=== PATIENT | male | born 1965 | race Caucasian/White ===

== ENCOUNTER → 2018-10-14 | Outpatient (CLI) | payer OTHER ==
[~2018-10-14] MED LIST: ACULAR 3 ML3 M1 OP; Cimetidine400 MG PO; IBU-8800 MG PO; MELOXICAM15 MG PO; METOPROLOL SR100 MG PO; METOPROLOL SR50 MG PO; MORPHINE SULFA100 M1 PO; MORPHINE SULFA100 MG PO; TOBREX OPHTH S2.5 ML OPH; VERAPAMIL HYDR180 MG PO
== END | disposition home or self-care (01) ==
LOC: US 15:15
DX: S86.012A Strain of left Achilles tendon, initial encounter (principal); M25.572 Pain in left ankle and joints of left foot; X58.XXXA Exposure to other specified factors, initial encounter; Y93.89 Activity, other specified; Y92.89 Other specified places as the place of occurrence of the external cause; Y99.8 Other external cause status

== ENCOUNTER 2022-09-05 07:52 | Emergency (ER) | payer OTHER ==
[~2022-09-05] VITALS: Ht 177.8 cm; Wt 97.5 kg
[2022-09-05 08:46] LABS: BASO % 0.4 % (0.0-1.0); EOS # 0.3 10*3/uL (0.0-0.4); EOS % 3.1 % (1.0-4.0); HEMATOCRIT 42.7 % (42.0-52.0); LYMPH # 1.6 10*3/uL (1.3-4.4); LYMPH % 15.9 % (27.0-41.0); MEAN CELL VOLUME 93.8 fl (80.0-94.0); MEAN CORPUSCULAR HGB 31.2 pg (27.0-31.0); MEAN CORPUSCULAR HGB CONC 33.3 g/dl (33.0-37.0); MEAN PLATELET VOLUME 8.6 fl (9.6-12.3); MONO % 9.3 % (3.0-9.0); NEUT # 7.3 10*3/uL (2.3-7.9); PLATELET COUNT AUTOMATED 280 10*3/uL (130-400); RED BLOOD COUNT 4.55 10*6/uL (4.50-5.90); RED CELL DISTRI WIDTH 12.3 % (0-14.5); WHITE BLOOD COUNT 10.3 10*3/uL (4.8-10.8)
[2022-09-05 09:02] LABS: ALKALINE PHOSPHATASE 55 U/L (46-116); BUN 14 mg/dl (9-23); CHLORIDE 103 mmol/L (98-107); POTASSIUM 4.2 mmol/L (3.4-5.1); SGPT/ALT 22 U/L (10-49); TOTAL PROTEIN 7.3 gm/dL (6.0-8.0)
[2022-09-05] MEDS ORDERED: METOPROLOL SUCC50 M2 PO (10:47)
== END 2022-09-05 11:32 | disposition home or self-care (01) ==
LOC: ED 07:52
PROVIDERS: Student in an Organized Health Care Education/Training Program
DX: I10 Essential (primary) hypertension (principal); R00.0 Tachycardia, unspecified; Z88.8 Allergy status to other drugs, medicaments and biological substances; Z90.89 Acquired absence of other organs; Z98.890 Other specified postprocedural states

== ENCOUNTER 2022-11-30 09:50 | Emergency (ER) | payer OTHER ==
[~2022-11-30] VITALS: Wt 96.6 kg
[~2022-11-30 09:50] MED LIST changes: +METOPROLOL SUCC50 M2 PO
[2022-11-30] MEDS ORDERED: SIMVASTATIN10 MG PO (10:24)
[2022-11-30] MEDS ORDERED: PANTOPRAZOLE SO40 MG PO (10:24)
[2022-11-30] MEDS ORDERED: HYDROCHLOROTH12.5 M2 PO (10:25)
[2022-11-30] MEDS ORDERED: LISINOPRIL30 MG PO (10:25)
[2022-11-30 11:01] LABS: BASO % 0.2 % (0.0-1.0); EOS # 0.1 10*3/uL (0.0-0.4); EOS % 0.4 % (1.0-4.0); HEMATOCRIT 41.2 % (42.0-52.0); LYMPH # 0.7 10*3/uL (1.3-4.4); LYMPH % 3.8 % (27.0-41.0); MEAN CELL VOLUME 93.6 fl (80.0-94.0); MEAN CORPUSCULAR HGB 31.8 pg (27.0-31.0); MEAN PLATELET VOLUME 9.1 fl (9.6-12.3); MONO # 0.9 10*3/uL (0.1-1.0); MONO % 4.8 % (3.0-9.0); NEUT # 16.1 10*3/uL (2.3-7.9); NEUT % 89.7 % (47.0-73.0); PLATELET COUNT AUTOMATED 248 10*3/uL (130-400); RED CELL DISTRI WIDTH 12.7 % (0-14.5); WHITE BLOOD COUNT 17.9 10*3/uL (4.8-10.8)
[2022-11-30 11:11] LABS: ACT PARTIAL THROMBO TIME 31.6 SECONDS (20.0-32.1); INTERNATIONAL NORM RATIO 1.1 (2.0-3.5)
[2022-11-30 11:18] LABS: ALKALINE PHOSPHATASE 56 U/L (46-116); BUN 17 mg/dl (9-23); CHLORIDE 99 mmol/L (98-107); LIPASE 28 U/L (12-53); POTASSIUM 3.6 mmol/L (3.4-5.1); SGPT/ALT 27 U/L (10-49); TOTAL PROTEIN 7.5 gm/dL (6.0-8.0)
== END 2022-11-30 13:55 | disposition short-term general hospital (02) ==
LOC: ED 09:50
PROVIDERS: Emergency Medicine
DX: M79.10 Myalgia, unspecified site (principal); A41.9 Sepsis, unspecified organism; N49.2 Inflammatory disorders of scrotum; Z88.8 Allergy status to other drugs, medicaments and biological substances; Z98.890 Other specified postprocedural states

== ENCOUNTER → 2023-07-16 | Outpatient (CLI) | payer OTHER ==
[~2023-07-16] MED LIST changes: +HYDROCHLOROTH12.5 M2 PO; +LISINOPRIL30 MG PO; +PANTOPRAZOLE SO40 MG PO; +SIMVASTATIN10 MG PO
== END | disposition home or self-care (01) ==
LOC: US 13:11
PROVIDERS: ATTEND Urology
DX: N28.1 Cyst of kidney, acquired (principal); N40.0 Benign prostatic hyperplasia without lower urinary tract symptoms

== ENCOUNTER 2024-12-27 12:23 | Emergency (ER) | payer OTHER ==
[~2024-12-27] VITALS: Ht 177.8 cm; Wt 104.3 kg
[2024-12-27 13:08] LABS: BASO # 0.1 10*3/uL (0.0-0.1); BASO % 0.4 % (0.0-1.0); EOS # 0.1 10*3/uL (0.0-0.4); HEMATOCRIT 40.9 % (42.0-52.0); MEAN CELL VOLUME 89.5 fl (80.0-94.0); MEAN CORPUSCULAR HGB 30.6 pg (27.0-31.0); MEAN CORPUSCULAR HGB CONC 34.2 g/dl (33.0-37.0); MEAN PLATELET VOLUME 8.6 fl (9.6-12.3); MONO # 0.8 10*3/uL (0.1-1.0); MONO % 5.3 % (3.0-9.0); NEUT # 11.2 10*3/uL (2.3-7.9); NEUT % 77.6 % (47.0-73.0); PLATELET COUNT AUTOMATED 295 10*3/uL (130-400); RED BLOOD COUNT 4.57 10*6/uL (4.50-5.90); RED CELL DISTRI WIDTH 12.5 % (0-14.5); WHITE BLOOD COUNT 14.4 10*3/uL (4.8-10.8)
[2024-12-27] MEDS ORDERED: LOSARTAN POTAS100 M1 PO (13:16)
[2024-12-27] MEDS ORDERED: ROSUVASTATIN CA10 MG PO (13:16)
[2024-12-27 13:23] LABS: ACT PARTIAL THROMBO TIME 26.7 SECONDS (20.0-32.1)
[2024-12-27 13:31] LABS: ALKALINE PHOSPHATASE 60 U/L (46-116); BUN 20 mg/dl (9-23); CHLORIDE 103 mmol/L (98-107); POTASSIUM 4.3 mmol/L (3.4-5.1); SGPT/ALT 37 U/L (5-49); TOTAL PROTEIN 7.1 gm/dL (6.0-8.0)
[2024-12-27] MEDS ORDERED: HYDROCODONE-AC1 EAC1 PO (13:38)
[2024-12-27] MEDS ORDERED: Enoxaparin Sodium 100 MG/ML SYR SC ONE (13:40)
[2024-12-27] MEDS ORDERED: Acetaminophen/Hydrocodone 5 MG/325 MG TABLET PO ONE (13:45)
[2024-12-27] MEDS ORDERED: Enoxaparin Sodium 100 MG/ML SYR SC SCH (13:55)
== END 2024-12-27 14:10 | disposition home or self-care (01) ==
LOC: ED 12:23
PROVIDERS: Nurse Practitioner Family
DX: S86.812A Strain of other muscle(s) and tendon(s) at lower leg level, left leg, initial encounter (principal); S80.12XA Contusion of left lower leg, initial encounter; I10 Essential (primary) hypertension; M19.90 Unspecified osteoarthritis, unspecified site; E78.5 Hyperlipidemia, unspecified; Z88.8 Allergy status to other drugs, medicaments and biological substances; Z98.890 Other specified postprocedural states; X58.XXXA Exposure to other specified factors, initial encounter; Y93.89 Activity, other specified; Y92.89 Other specified places as the place of occurrence of the external cause; Y99.8 Other external cause status

== ENCOUNTER → 2024-12-28 | Outpatient (CLI) | payer OTHER ==
[~2024-12-28] MED LIST changes: +HYDROCODONE-AC1 EAC1 PO; +LOSARTAN POTAS100 M1 PO; +ROSUVASTATIN CA10 MG PO
== END | disposition home or self-care (01) ==
LOC: US 07:05
PROVIDERS: ATTEND Nurse Practitioner Family
DX: I82.402 Acute embolism and thrombosis of unspecified deep veins of left lower extremity (principal)